=== PATIENT | male | born 1995 | race Caucasian/White ===

== ENCOUNTER 2019-01-31 20:27 | Emergency (ER) | payer MEDICAID ==
--- NOTE | 2019-01-31 22:33 | ED Physician Chart ---
ED Chief Complaint/HPI - Patient Information Date Seen:: 01/31/19 Time Seen:: 20:40 Chief Complaint:: Left foot pain for 2 days. History of Present Illness:: Pt came in by private auto because of left foot swelling and pain for 2 days. Pt denies any known injury. Pt remains ambulatory. No fever or chill. Allergies:: Allergies Allergy/AdvReac Type Severity Reaction Status Date / Time No Known Allergies Allergy Verified 01/31/19 20:52 Vitals:: Vital Signs - 8 hr 01/31/19 20:40 Temp 98.5 F HR 116 RR 18 BP 159/90 O2 Sat % 95 Historian:: Patient Family MD/PCP:: Unknown LMP:: N/A Review:: Nurse's Note Reviewed ED Review of Systems - Review of Systems General/Constitutional: No fever, No chills, No weight loss, No weakness, No loss of appetite Skin: No skin lesions, No rash, No bruising Head: No headache, No light-headedness Eyes: No loss of vision, No pain, No diplopia ENT: No earache, No nasal drainage, No sore throat Neck: No neck pain, No swelling, No stiffness Cardio Vascular: No chest pain, No palpitations Pulmonary: No SOB, No cough, No wheezing GI: No nausea, No vomiting, No diarrhea, No pain G/U: No dysuria, No frequency, No hematuria Musculoskeletal: Other (left foot pain, see HPI.) Endocrine: No polyuria, No polydipsia Psychiatric: No prior psych history Hematopoietic: No bruising, No lymphadenopathy Allergic/Immuno: No urticaria, No angioedema Neurological: No syncope, No focal symptoms, No weakness, No paresthesia, No headache, No dizziness, No confusion ED Past Medical History - Past Medical History Past Medical History: Asthma/COPD Family History: Diabetes Melitus (in PGF and uncle) Social History: Non Smoker, No Alcohol, No Drug Use, Single, Lives With Parents , Employed Employment:: store warehouse associate. Surgical History: None Psychiatricy History: None Medication: Reviewed Family Medical History - Family Member Mother History Unknown: Yes ED Physical Exam - Physical Examination General/Constitutional: Awake, Well-developed, well-nourished (male), Alert, No distress, Non-toxic appearing, Ambulatory Other Gen/Cons comments:: Breathes comfortably, speaks clearly, and interacts appropriately. Head: Atraumatic Eyes: Lids, conjuctiva normal, PERRL, EOMI Skin: No ecchymosis, Well hydrated, No lymphadenopathy ENMT: External ears, nose nl, Nasal exam nl, Oropharynx nl Neck: Nontender, Full ROM w/o pain, No nuchal rigidity, No mass Respiratory: Nl effort/Exclusion, Clear to Auscultation, No Wheeze/Rhonchi/Rales Cardio Vascular: RRR (HR 96), No murmur, gallop, rubs GI: No tenderness/rebounding/guarding, No organomegaly, Normal BS's, Nondistended Other Extremities comments:: L foot: FROM of all joints. There is an approximately 1 x 0.5 cm superficial wound in the interdigital space between first and second toes. There is trace light yellow exudate with mild peripheral erythema and minimal edema. No crepitus. No red streaking. No detectable motor/sensory/vascular deficit. Good distal pulse and capillary refill. Neuro/Psych: Alert/oriented (oriented x 3), Mood normal, Normal gait, No focal deficits ED Labs/Radiology/EKG Results - Lab Results Results: Laboratory Results - last 24 hr 01/31/19 01/31/19 23:00 23:00 WBC 12.4 H RBC 5.05 Hgb 15.3 Hct 46.2 MCV 91.4 MCH 30.2 H MCHC Differential 33.1 RDW 12.3 Plt Count 290 MPV 6.8 Neutrophils % 64.4 Lymphocytes % 23.8 Monocytes % 6.6 Eosinophils % 4.6 Basophils % 0.6 Sodium 137 Potassium 3.7 Chloride 97 L Carbon Dioxide 31.5 H Anion Gap 12.2 BUN 14 Creatinine 1.0 Est GFR ( Amer) > 60.0 Est GFR (Non-Af Amer) > 60.0 BUN/Creatinine Ratio 14.0 Glucose 93 Calcium 9.7 Wound culture is pending. ED Septic Shock - . Is Septic Shock (SBP<90, OR Lactate>4 mmol\L) present?: No - <6hrs of presentation: Vital Signs: Vital Signs - 8 hr 01/31/19 20:40 Temp 98.5 F HR 116 RR 18 BP 159/90 O2 Sat % 95 ED Reassessment (Disposition) - Reassessment Reassessment:: 0045 Pt has been repeatedly evaluated. Pt feels much better. Peripheral erythema adjacent to superficial wound in left foot has subsided. Lab findings have been reviewed with pt. Pt requests to go home now and does not want further observation/management in hospital. Aftercare instructions have been given. Reassessment Condition:: Improved - Diagnosis Diagnosis:: Left foot wound with early cellulitis. Stable and improved. - Aftercare/Follow up Instructions Aftercare/Follow-Up Instructions:: Refer to Discharge Instructions Notes:: Bed rest for today. Wound care instructions given. Keep wound area clean and dry. May take Tylenol 500 mg tab one tab po q6h prn pain. F/U with Dr. Hunt or PCP of pt's choice in one day for recheck with repeat lab studies: CBC, BMP, and f/u on wound culture. Return to ER immediately if condition worsens or if any further questions/problems. Medication Prescribed:: Bactrim DS one tab po q12h for 10 days. D-20 R-0 - Patient Disposition Discharge/Transfer:: Home Time:: 00:45 Condition at Disposition:: Stable, Improved
[2019-01-31 23:07] LABS: % BASOPHILS 0.6 % (0.0-2.0); % EOSINOPHILS 4.6 % (0.0-5.0); % LYMPHOCYTES 23.8 % (20.0-50.0); % MONOCYTES 6.6 % (2.0-10.0); % NEUTROPHILS 64.4 % (40.0-80.0); BASOPHILE ABSOLUTE 0.1 Th/cumm (0-0.2); EOSINOPHILE ABSOLUTE 0.6 Th/cmm (0.1-0.4); HEMATOCRIT 46.2 % (41.0-60); HEMOGLOBIN 15.3 gm/dL (12-16); MEAN CELL VOLUME 91.4 fl (80-99); MEAN CORPUSCULAR HEMOGLOBIN 30.2 pg (26.0-30.0); MEAN CORPUSCULAR HGB CONC 33.1 pg (28.0-36.0); MEAN PLATELET VOLUME 6.8 fl; MONOCYTE ABSOLUTE 0.8 Th/cmm (0.3-1.0); NEUTROPHILE ABSOLUTE 7.9 Th/cmm (1.8-8.0); PLATELET COUNT 290 Th/cmm (150-400); RED BLOOD COUNT 5.05 Mil/cmm (4.30-5.70); RED CELL DISTRIBUTION WIDTH 12.3 % (11.5-20.0); WHITE BLOOD COUNT 12.4 Th/cmm (4.8-10.8)
[2019-01-31 23:24] LABS: ANION GAP 12.2 (7.0-16.0); BUN - UREA NITROGEN 14 mg/dL (7-25); CALCIUM SERUM 9.7 mg/dL (8.6-10.3); CARBON DIOXIDE 31.5 mEq/L (21.0-31.0); CHLORIDE 97 mEq/L (98-107); GFR AFRICAN-AMERICAN > 60.0 ml/min (>90); GFR NON AFRICAN-AMERICAN > 60.0 ml/min; GLUCOSE 93 mg/dL (70-105); POTASSIUM SERUM 3.7 mEq/L (3.5-5.1); SODIUM SERUM 137 mEq/L (136-145)
== END 2019-02-01 01:10 | disposition home or self-care (01) ==
LOC: ER 20:27
DX: S91.302A Unspecified open wound, left foot, initial encounter (principal); J44.9 Chronic obstructive pulmonary disease, unspecified; X58.XXXA Exposure to other specified factors, initial encounter; Y93.89 Activity, other specified; Y92.89 Other specified places as the place of occurrence of the external cause; Y99.8 Other external cause status
CPT/HCPCS: 99283; 96365; 96375; 36415; 85025; 87070; 80048; J1885; J3370; Z7502